=== PATIENT | female | born 1990 | race American Indian/Alaskan Native ===

== ENCOUNTER 2018-05-06 20:04 | Inpatient (IN) | payer MEDICAID ==
[2018-05-06] MEDS ORDERED: BRETHINE IVP PRN (21:59)
[2018-05-06] MEDS ORDERED: MINERAL OIL PO PRN (21:59)
[2018-05-06] MEDS ORDERED: BRETHINE SUB-Q PRN (21:59)
[2018-05-06] MEDS ORDERED: CERVIDIL VG ONE (21:59)
[2018-05-06] MEDS ORDERED: NARCAN 0.4 MG/1 ML IV PRN (21:59)
[2018-05-06] MEDS ORDERED: ZOFRAN IV PRN (21:59)
[2018-05-06] MEDS ORDERED: XYLOCAINE 2% INFILTRATI ONE (21:59)
[2018-05-06] MEDS ORDERED: LACTATED RINGERS 1,000 ML IV SCH (22:00)
[2018-05-06] MEDS ORDERED: PITOCin/NS 20 UNIT/1000ML DRIP 20 UNITS/1,000 ML BAG IV SCH (22:00)
[2018-05-06] MEDS ORDERED: AMBIEN PO PRN (23:27)
[2018-05-06 23:38] LABS: Basophils # (Auto) 0.1 K/mm3 (0.0-0.1); Basophils % (Auto) 0.5 % (0.0-1.8); Eosinophils # (Auto) 0.1 K/mm3 (0.0-0.4); Eosinophils % (Auto) 0.6 % (0.0-4.3); Hematocrit 34.3 % (30.3-42.9); Hemoglobin 11.1 gm/dl (10.1-14.3); Lymphocytes # (Auto) 3.4 K/mm3 (1.2-5.4); Lymphocytes % (Auto) 21.4 % (13.4-35.0); Mean Corpuscular HGB Conc 32 % (30-34); Mean Corpuscular Volume 86 fl (79-97); Monocytes # (Auto) 1.1 K/mm3 (0.0-0.8); Monocytes % (Auto) 6.8 % (0.0-7.3); Platelet Count 296 K/mm3 (140-440); Red Blood Count 3.97 M/mm3 (3.65-5.03); Red Cell Distribution Width 14.9 % (13.2-15.2)
[2018-05-07] MEDS: LACTATED RINGERS 1,000 ML IV SCH ×2 (08:00→22:24)
[2018-05-07] MEDS ORDERED: STADOL IV PRN (11:38)
--- NOTE | 2018-05-07 11:44 | History and Physical Report ---
History of Present Illness Date of examination: 05/07/18 Date of admission: 05/06/18 20:04 Chief complaint: Presents for a scheduled induction of labor due to Gestational HTN, and obesity. History of present illness: Early entry to care at 9 2/7 Weeks, 1st trimester complicated by Hyperemesis and Vitamin D Deficiency, 2nd and 3rd trimesters complicated by excessive maternal weight gain and HTN, started Labetolol 200mg PO BID at 34 4/7 weeks. Co-managed with [facility] throughout . Past History Past Medical History: no pertinent history Past Surgical History: other (oral Sx (3rd molar extractions)) Family/Genetic History: diabetes, hypertension, cancer Social history: no significant social history, single - Obstetrical History Expected Date of Delivery: 05/18/18 Actual Gestation: 38 Week(s) 3 Day(s) : 2 Induced : 1 Medications and Allergies Allergies Allergy/AdvReac Type Severity Reaction Status Date / Time No Known Allergies Allergy Verified 04/03/18 14:08 Active Meds: Active Medications Butorphanol Tartrate (Stadol) 2 mg IV Q2H PRN PRN Reason: Labor Pain Ephedrine Sulfate (Ephedrine Sulfate) 10 mg IV Q2M PRN PRN Reason: Hypotension Lactated Ringer's (Lactated Ringers) 1,000 mls @ 125 mls/hr IV DIRECT OSIRIS Last Admin: 05/06/18 23:04 Dose: 125 mls/hr Documented by: Oxytocin/Sodium Chloride (Pitocin/Ns 20 Unit/1000ml Drip) 20 units in 1,000 mls @ 125 mls/hr IV DIRECT OSIRIS Oxytocin/Sodium Chloride (Pitocin/Ns 30 Unit/500ml) 30 units in 500 mls @ 4 mls/hr IV TITR OSIRIS; Protocol Mineral Oil (Mineral Oil) 30 ml PO QHS PRN PRN Reason: Constipation Naloxone HCl (Narcan 0.4 Mg/1 Ml) 0.1 mg IV Q2MIN PRN PRN Reason: Res Rate </= 8 or 02 SAT < 92% Ondansetron HCl (Zofran) 4 mg IV Q8H PRN PRN Reason: Nausea And Vomiting Terbutaline Sulfate (Brethine) 0.25 mg SUB-Q ONCE PRN PRN Reason: Hyperstimulation/Hypertonicity Terbutaline Sulfate (Brethine) 0.25 mg IVP ONCE PRN PRN Reason: Hyperstimulation/Hypertonicity Zolpidem Tartrate (Ambien) 10 mg PO QHS PRN PRN Reason: Insomnia Last Admin: 05/06/18 23:52 Dose: 10 mg Documented by: Review of Systems All systems: negative - Vital Signs Vital signs: Vital Signs Temp Pulse BP 97.5 F L 112 H 143/81 05/06/18 20:44 05/06/18 20:44 05/06/18 20:44 Temp Pulse Resp BP Pulse Ox 97.7 F 102 H 16 140/90 05/07/18 08:00 05/07/18 11:35 05/07/18 08:00 05/07/18 11:35 - Physical Exam Breasts: Positive: normal Cardiovascular: Regular rate Lungs: Positive: Clear to auscultation, Normal air movement Abdomen: Positive: normal appearance, soft, normal bowel sounds Genitourinary (Female): Positive: normal external genitalia, normal perenium Vagina: Positive: normal moisture Uterus: Positive: enlarged - Obstetrical FHR: category 1 Uterine Contraction Monitor Mode: External Cervical Dilatation: 1 (VTX and Intact) Cervical Effacement Percentage: 50 station: -3 Uterine Contraction Pattern: Irregular Uterine Tone Measurement Phase: Resting Uterine Contraction Intensity: Mild Results Result Diagrams: 05/06/18 23:25 Abnormal lab results 05/06/18 Range/Units 23:25 WBC 16.0 H (4.5-11.0) K/mm3 [place] # 1.1 H (0.0-0.8) K/mm3 Seg Neutrophils % 70.7 H (40.0-70.0) % Seg Neutrophils # 11.3 H (1.8-7.7) K/mm3 All other labs normal. Assessment and Plan A: IUP @ 38 3/7 Weeks Category I Tracing Gestational HTN Maternal Obesity GBS Negative P: Admit to L&D per Routine Orders Cervidil removed Cook's Cervical Ripening Balloon Placed Start Pitocin Induction IV Pain Control
[2018-05-07] MEDS: PITOCin/NS 30 UNIT/500ML 30 UNITS/500 ML BAG IV SCH ×4 (12:00→14:22)
--- NOTE | 2018-05-07 17:06 | Progress Note ---
Assessment and Plan A: IUP @ 38 3/7 Weeks Category I Tracing Gestational HTN Maternal Obesity GBS Negative P: AROM Continue Pitocin Induction IV Pain Control Subjective - Subjective Date of service: 05/07/18 Interval history: Early entry to care at 9 2/7 Weeks, 1st trimester complicated by Hyperemesis and Vitamin D Deficiency, 2nd and 3rd trimesters complicated by excessive maternal weight gain and HTN, started Labetolol 200mg PO BID at 34 4/7 weeks. Co-managed with [facility] throughout . Patient reports: movement normal Objective - Vital Signs Vital Signs: Vital Signs - 12hr 05/07/18 05/07/18 05/07/18 05:13 06:11 07:11 Temperature Pulse Rate 97 H 94 H 92 H Respiratory Rate Blood Pressure 123/68 119/60 135/75 05/07/18 05/07/18 05/07/18 07:29 08:00 08:12 Temperature 97.7 F Pulse Rate 100 H 109 H Respiratory 16 Rate Blood Pressure 142/63 121/59 05/07/18 05/07/18 05/07/18 09:11 11:20 11:35 Temperature 97.6 F Pulse Rate 103 H 102 H Respiratory 16 Rate Blood Pressure 127/74 140/90 05/07/18 05/07/18 05/07/18 12:00 12:12 13:11 Temperature 97.8 F Pulse Rate 95 H 90 Respiratory 16 Rate Blood Pressure 143/88 133/67 05/07/18 05/07/18 05/07/18 14:15 15:11 16:11 Temperature Pulse Rate 99 H 98 H 98 H Respiratory Rate Blood Pressure 149/75 136/80 141/83 - Exam Breasts: normal Cardiovascular: Regular rate Lungs: Clear to auscultation, Normal air movement Abdomen: Present: normal appearance, soft, normal bowel sounds Uterus: Present: normal, firm, fundal height above umbilicus FHR: category 1 Uterine Contraction Monitor Mode: External Cervical Dilatation: 5 (Moderate amount of clear fluid upon AROM at 1655) Cervical Effacement Percentage: 70 station: -2 Uterine Contraction Pattern: Irregular Uterine Tone Measurement Phase: Resting Uterine Contraction Intensity: Moderate Extremities: normal - Labs Labs: Abnormal Labs 05/06/18 23:25 WBC 16.0 H [place] # 1.1 H Seg Neutrophils % 70.7 H Seg Neutrophils # 11.3 H Laboratory Results - last 24 hr 05/06/18 05/06/18 05/06/18 21:30 21:30 23:25 WBC 16.0 H RBC 3.97 Hgb 11.1 Hct 34.3 MCV 86 MCH 28 MCHC 32 RDW 14.9 Plt Count 296 Lymph % (Auto) 21.4 [place] % (Auto) 6.8 Eos % (Auto) 0.6 Baso % (Auto) 0.5 Lymph # 3.4 [place] # 1.1 H Eos # 0.1 Baso # 0.1 Seg Neutrophils % 70.7 H Seg Neutrophils # 11.3 H RPR Nonreactive Blood Type O POSITIVE Antibody Screen Negative
[2018-05-07] MEDS ORDERED: NARCAN 2 MG/2 ML IV PRN (19:00)
[2018-05-07] MEDS ORDERED: SUBLIMAZE ONE ×2 (19:40→23:45)
[2018-05-07] MEDS ORDERED: SENSORCAINE/DEXTR 0.75-8.25% INFILTRATI ONE (19:41)
[2018-05-07] MEDS ORDERED: fentaNYL-BUPIV 2 MCG/ML-0.125% 200 MCG/100 ML BAG EPIDURAL SCH (20:00)
--- NOTE | 2018-05-07 23:07 | Progress Note ---
Assessment and Plan A: IUP @ 38 3/7 Weeks Category II Tracing Gestational HTN Maternal Obesity GBS Negative P: Pitocin has been discontinued O2 Mask on Multiple Maternal Position Changes Amnioinfusion Consulted Dr. Carrasco due to Category II tracing remote from delivery Recommends delivery by primary Dr. Carrasco en route to hospital Subjective - Subjective Date of service: 05/07/18 Interval history: Early entry to care at 9 2/7 Weeks, 1st trimester complicated by Hyperemesis and Vitamin D Deficiency, 2nd and 3rd trimesters complicated by excessive maternal weight gain and HTN, started Labetolol 200mg PO BID at 34 4/7 weeks. Co-managed with [facility] throughout . Patient reports: movement normal Objective - Vital Signs Vital Signs: Vital Signs - 12hr 05/07/18 05/07/18 05/07/18 11:20 11:35 12:00 Temperature 97.6 F 97.8 F Pulse Rate 102 H Respiratory 16 16 Rate Blood Pressure 140/90 O2 Sat by Pulse Oximetry 05/07/18 05/07/18 05/07/18 12:12 13:11 14:15 Temperature Pulse Rate 95 H 90 99 H Respiratory Rate Blood Pressure 143/88 133/67 149/75 O2 Sat by Pulse Oximetry 05/07/18 05/07/18 05/07/18 15:11 16:11 17:12 Temperature Pulse Rate 98 H 98 H 109 H Respiratory Rate Blood Pressure 136/80 141/83 153/101 O2 Sat by Pulse Oximetry 05/07/18 05/07/18 05/07/18 18:13 19:13 19:26 Temperature Pulse Rate 105 H 107 H 115 H Respiratory Rate Blood Pressure 193/103 162/88 O2 Sat by Pulse 99 Oximetry 05/07/18 05/07/18 05/07/18 19:31 19:36 19:41 Temperature Pulse Rate 111 H 111 H 107 H Respiratory Rate Blood Pressure 148/88 O2 Sat by Pulse 100 100 100 Oximetry 05/07/18 05/07/18 05/07/18 19:46 19:51 19:56 Temperature Pulse Rate 116 H 107 H 113 H Respiratory Rate Blood Pressure O2 Sat by Pulse 92 100 100 Oximetry 05/07/18 05/07/18 05/07/18 19:58 19:59 20:00 Temperature Pulse Rate 112 H 114 H 110 H Respiratory Rate Blood Pressure 193/99 187/87 180/93 O2 Sat by Pulse Oximetry 05/07/18 05/07/18 05/07/18 20:01 20:02 20:06 Temperature Pulse Rate 112 H 106 H 105 H Respiratory Rate Blood Pressure 187/99 169/82 O2 Sat by Pulse 99 99 Oximetry 05/07/18 05/07/18 05/07/18 20:11 20:13 20:16 Temperature Pulse Rate 100 H 98 H 99 H Respiratory Rate Blood Pressure 161/86 O2 Sat by Pulse 100 100 Oximetry 05/07/18 05/07/18 05/07/18 20:21 20:26 20:31 Temperature Pulse Rate 104 H 113 H 105 H Respiratory Rate Blood Pressure 168/85 O2 Sat by Pulse 100 100 99 Oximetry 05/07/18 05/07/18 05/07/18 20:36 20:41 20:44 Temperature Pulse Rate 110 H 109 H 106 H Respiratory Rate Blood Pressure 157/82 O2 Sat by Pulse 100 100 Oximetry 05/07/18 05/07/18 05/07/18 20:46 20:51 20:56 Temperature Pulse Rate 111 H 104 H 102 H Respiratory Rate Blood Pressure O2 Sat by Pulse 100 100 100 Oximetry 05/07/18 05/07/18 05/07/18 20:59 21:01 21:06 Temperature Pulse Rate 100 H 105 H 102 H Respiratory Rate Blood Pressure 140/98 O2 Sat by Pulse 100 100 Oximetry 05/07/18 05/07/18 05/07/18 21:11 21:13 21:16 Temperature Pulse Rate 118 H 112 H 111 H Respiratory Rate Blood Pressure 157/91 O2 Sat by Pulse 100 100 Oximetry 05/07/18 05/07/18 05/07/18 21:21 21:26 21:28 Temperature Pulse Rate 114 H 113 H 105 H Respiratory Rate Blood Pressure 168/83 O2 Sat by Pulse 100 100 Oximetry 05/07/18 05/07/18 05/07/18 21:31 21:36 21:41 Temperature Pulse Rate 107 H 107 H 109 H Respiratory Rate Blood Pressure O2 Sat by Pulse 100 100 100 Oximetry 05/07/18 05/07/18 05/07/18 21:43 21:46 21:51 Temperature Pulse Rate 106 H 111 H 127 H Respiratory Rate Blood Pressure 135/79 O2 Sat by Pulse 100 100 Oximetry 05/07/18 05/07/1805/07/19 21:56 21:58 22:01 Temperature Pulse Rate 115 H 109 H 113 H Respiratory Rate Blood Pressure 130/75 O2 Sat by Pulse 100 100 Oximetry 05/07/18 05/07/18 05/07/18 22:06 22:11 22:14 Temperature Pulse Rate 121 H 121 H 107 H Respiratory Rate Blood Pressure 146/90 O2 Sat by Pulse 100 100 Oximetry 05/07/18 05/07/18 05/07/18 22:16 22:21 22:26 Temperature Pulse Rate 105 H 114 H 120 H Respiratory Rate Blood Pressure O2 Sat by Pulse 100 100 100 Oximetry 05/07/18 05/07/18 05/07/18 22:28 22:31 22:36 Temperature Pulse Rate 118 H 106 H 118 H Respiratory Rate Blood Pressure 145/77 O2 Sat by Pulse 100 100 Oximetry 05/07/18 05/07/18 05/07/18 22:41 22:43 22:46 Temperature Pulse Rate 105 H 105 H 102 H Respiratory Rate Blood Pressure 138/78 O2 Sat by Pulse 97 100 Oximetry 05/07/18 05/07/18 05/07/18 22:51 22:56 22:59 Temperature Pulse Rate 106 H 109 H 114 H Respiratory Rate Blood Pressure 126/72 O2 Sat by Pulse 100 100 Oximetry - Exam Breasts: normal Cardiovascular: Regular rate Lungs: Clear to auscultation, Normal air movement Abdomen: Present: normal appearance, soft, normal bowel sounds FHR: category 2 FHR comments: FHR: 144, moderate varability, -accels, +late decels, Uterine Contraction Monitor Mode: Internal Cervical Dilatation: 5.5 Cervical Effacement Percentage: 80 station: -2 Uterine Contraction Pattern: Regular Uterine Tone Measurement Phase: Resting Uterine Contraction Intensity: Mild Extremities: normal - Labs Labs: Abnormal Labs 05/06/18 23:25 WBC 16.0 H [place] # 1.1 H Seg Neutrophils % 70.7 H Seg Neutrophils # 11.3 H Laboratory Results - last 24 hr 05/06/18 05/06/18 21:30 23:25 WBC 16.0 H RBC 3.97 Hgb 11.1 Hct 34.3 MCV 86 MCH 28 MCHC 32 RDW 14.9 Plt Count 296 Lymph % (Auto) 21.4 [place] % (Auto) 6.8 Eos % (Auto) 0.6 Baso % (Auto) 0.5 Lymph # 3.4 [place] # 1.1 H Eos # 0.1 Baso # 0.1 Seg Neutrophils % 70.7 H Seg Neutrophils # 11.3 H RPR Nonreactive
[2018-05-07] MEDS ORDERED: PEPCID IV ONE (23:08)
[2018-05-07] MEDS ORDERED: REGLAN IV ONE (23:08)
[2018-05-07] MEDS ORDERED: BICITRA PO ONE (23:08)
--- NOTE | 2018-05-07 23:41 | Progress Note ---
Assessment and Plan - Patient Problems (1) 38 weeks gestation of Current Visit: Yes Status: Acute (2) Active labor Current Visit: Yes Status: Acute (3) Non-reassuring cardiotocographic tracing Current Visit: Yes Status: Acute Plan to address problem: I discussed the above findings with the patient. i told her that she needs to be delivered via C/section. Risks, benefits, and alternatives of the procedure were discussed in detail with the patient which included but not limited to the risk of infection, hemorrhage requiring blood transfusion, injury to the bowel or bladder and blood vessels. The patient expressed understanding, her questions were answered, and she gave informed consent. Anesthesia has been notified. Keep NPO. Continue monitoring. (4) Failure to progress in labor Current Visit: Yes Status: Acute (5) Chronic hypertension affecting Current Visit: Yes Status: Acute Plan to address problem: Will do toxemia labs. (6) Morbid obesity Current Visit: Yes Status: Acute Subjective - Subjective Date of service: 05/07/18 Principal diagnosis: SIUP at 38 weeks and 3 days in active labor with failure to dilate. Interval history: Patient is a 28 year old , LMP, EDC 05/18/18 at 38 weeks and 3 days gestation who was admitted for labor induction due to chronic HTN. She received cervidil on 05/05/18, followed by pitocin augmentation on 05/06/18. This AM, Cook's Ballon was inserted. She dilated to 5 cm/80% and has not progressed for over 6 hours despite adequate contractions. She then developed variables decelerations. I was called to evaluate the patient by marketing trainee Heidi for the above reasons. I found the patient lying comfortably in bed. She has epidural for pain control. tracing is CAT2. Patient reports: movement normal Objective - Vital Signs Vital Signs: Vital Signs - 12hr 05/07/18 05/07/18 05/07/18 12:00 12:12 13:11 Temperature 97.8 F Pulse Rate 95 H 90 Respiratory 16 Rate Blood Pressure 143/88 133/67 O2 Sat by Pulse Oximetry 05/07/18 05/07/18 05/07/18 14:15 15:11 16:11 Temperature Pulse Rate 99 H 98 H 98 H Respiratory Rate Blood Pressure 149/75 136/80 141/83 O2 Sat by Pulse Oximetry 05/07/18 05/07/18 05/07/18 17:12 18:13 19:13 Temperature Pulse Rate 109 H 105 H 107 H Respiratory Rate Blood Pressure 153/101 193/103 162/88 O2 Sat by Pulse Oximetry 05/07/18 05/07/18 05/07/18 19:26 19:31 19:36 Temperature Pulse Rate 115 H 111 H 111 H Respiratory Rate Blood Pressure 148/88 O2 Sat by Pulse 99 100 100 Oximetry 05/07/18 05/07/18 05/07/18 19:41 19:46 19:51 Temperature Pulse Rate 107 H 116 H 107 H Respiratory Rate Blood Pressure O2 Sat by Pulse 100 92 100 Oximetry 05/07/18 05/07/18 05/07/18 19:56 19:58 19:59 Temperature Pulse Rate 113 H 112 H 114 H Respiratory Rate Blood Pressure 193/99 187/87 O2 Sat by Pulse 100 Oximetry 05/07/18 05/07/18 05/07/18 20:00 20:01 20:02 Temperature Pulse Rate 110 H 112 H 106 H Respiratory Rate Blood Pressure 180/93 187/99 O2 Sat by Pulse 99 Oximetry 05/07/18 05/07/18 05/07/18 20:06 20:11 20:13 Temperature Pulse Rate 105 H 100 H 98 H Respiratory Rate Blood Pressure 169/82 161/86 O2 Sat by Pulse 99 100 Oximetry 05/07/18 05/07/18 05/07/18 20:16 20:21 20:26 Temperature Pulse Rate 99 H 104 H 113 H Respiratory Rate Blood Pressure 168/85 O2 Sat by Pulse 100 100 100 Oximetry 05/07/18 05/07/18 05/07/18 20:31 20:36 20:41 Temperature Pulse Rate 105 H 110 H 109 H Respiratory Rate Blood Pressure O2 Sat by Pulse 99 100 100 Oximetry 05/07/18 05/07/18 05/07/18 20:44 20:46 20:51 Temperature Pulse Rate 106 H 111 H 104 H Respiratory Rate Blood Pressure 157/82 O2 Sat by Pulse 100 100 Oximetry 05/07/18 05/07/18 05/07/18 20:56 20:59 21:01 Temperature Pulse Rate 102 H 100 H 105 H Respiratory Rate Blood Pressure 140/98 O2 Sat by Pulse 100 100 Oximetry 05/07/18 05/07/18 05/07/18 21:06 21:11 21:13 Temperature Pulse Rate 102 H 118 H 112 H Respiratory Rate Blood Pressure 157/91 O2 Sat by Pulse 100 100 Oximetry 05/07/18 05/07/18 05/07/18 21:16 21:21 21:26 Temperature Pulse Rate 111 H 114 H 113 H Respiratory Rate Blood Pressure O2 Sat by Pulse 100 100 100 Oximetry 05/07/18 05/07/18 05/07/18 21:28 21:31 21:36 Temperature Pulse Rate 105 H 107 H 107 H Respiratory Rate Blood Pressure 168/83 O2 Sat by Pulse 100 100 Oximetry 05/07/18 05/07/18 05/07/18 21:41 21:43 21:46 Temperature Pulse Rate 109 H 106 H 111 H Respiratory Rate Blood Pressure 135/79 O2 Sat by Pulse 100 100 Oximetry 05/07/18 05/07/18 05/07/18 21:51 21:56 21:58 Temperature Pulse Rate 127 H 115 H 109 H Respiratory Rate Blood Pressure 130/75 O2 Sat by Pulse 100 100 Oximetry 05/07/18 05/07/18 05/07/18 22:01 22:06 22:11 Temperature Pulse Rate 113 H 121 H 121 H Respiratory Rate Blood Pressure O2 Sat by Pulse 100 100 100 Oximetry 05/07/18 05/07/18 05/07/18 22:14 22:16 22:21 Temperature Pulse Rate 107 H 105 H 114 H Respiratory Rate Blood Pressure 146/90 O2 Sat by Pulse 100 100 Oximetry 05/07/18 05/07/18 05/07/18 22:26 22:28 22:31 Temperature Pulse Rate 120 H 118 H 106 H Respiratory Rate Blood Pressure 145/77 O2 Sat by Pulse 100 100 Oximetry 05/07/18 05/07/18 05/07/18 22:36 22:41 22:43 Temperature Pulse Rate 118 H 105 H 105 H Respiratory Rate Blood Pressure 138/78 O2 Sat by Pulse 100 97 Oximetry 05/07/18 05/07/18 05/07/18 22:46 22:51 22:56 Temperature Pulse Rate 102 H 106 H 109 H Respiratory Rate Blood Pressure O2 Sat by Pulse 100 100 100 Oximetry 05/07/18 05/07/18 05/07/18 22:59 23:14 23:28 Temperature Pulse Rate 114 H 114 H 123 H Respiratory Rate Blood Pressure 126/72 171/90 169/85 O2 Sat by Pulse Oximetry - Exam Cardiovascular: Normal S1, Normal S2 Lungs: Clear to auscultation Vulva: both: normal FHR: category 2 Uterine Contraction Monitor Mode: External Cervical Dilatation: 5 Cervical Effacement Percentage: 80 station: -2 Uterine Contraction Pattern: Regular Deep Tendon Reflex Grade: Normal +2 - Labs Labs: Abnormal Labs 05/06/18 23:25 WBC 16.0 H [place] # 1.1 H Seg Neutrophils % 70.7 H Seg Neutrophils # 11.3 H Laboratory Results - last 24 hr 05/06/18 21:30 RPR Nonreactive - Results US- obstetric: report reviewed
[2018-05-07] MEDS ORDERED: XYLOCAINE MPF 2% ONE (23:44)
[2018-05-07] MEDS ORDERED: ANCEF/STERILE WATER 2 GM/20 ML 2 GM/20 ML SYRINGE IV NR (23:45)
[2018-05-07] MEDS ORDERED: LACTATED RINGERS 1,000 ML IV SCH (23:45)
[2018-05-07] MEDS ORDERED: PITOCin/NS 20 UNIT/1000ML DRIP 20 UNITS/1,000 ML BAG IV SCH (23:45)
[2018-05-07] MEDS ORDERED: NACL 0.9% IR ONE (23:58)
[2018-05-07] MEDS ORDERED: WATER FOR IRRIG STERILE IR ONE (23:58)
[2018-05-08] MEDS ORDERED: ZOFRAN ONE (00:14)
[2018-05-08] MEDS ORDERED: ASTRAMORPH PF 10MG/10ML ONE (00:15)
[2018-05-08] MEDS ORDERED: SUBLIMAZE ONE (00:22)
[2018-05-08] MEDS ORDERED: VERSED ONE (00:29)
[2018-05-08] MEDS ORDERED: MILK OF MAGNESIA PO PRN (01:02)
[2018-05-08] MEDS ORDERED: TYLENOL PO PRN (01:02)
[2018-05-08] MEDS ORDERED: MYLICON PO PRN (01:02)
[2018-05-08] MEDS ORDERED: TORADOL IV PRN (01:02)
[2018-05-08] MEDS ORDERED: ANUCORT-HC PR PRN (01:02)
[2018-05-08] MEDS ORDERED: MORPHINE IV PRN (01:02)
[2018-05-08] MEDS ORDERED: PHENERGAN PR PRN (01:02)
[2018-05-08] MEDS ORDERED: NARCAN 0.4 MG/1 ML IV PRN (01:02)
[2018-05-08] MEDS ORDERED: SENOKOT PO PRN (01:02)
[2018-05-08] MEDS ORDERED: ZOFRAN IV PRN (01:02)
[2018-05-08] MEDS ORDERED: TUCKS PAD TP PRN (01:02)
[2018-05-08] MEDS ORDERED: LANSINOH TP PRN (01:02)
--- NOTE | 2018-05-08 01:21 | Operative Report ---
Operative Report Operative Report: Preoperative diagnosis 1. SIUP at 38 weeks and 4 days gestation in active labor. 2. Failure to dilate and descend. 3. Category 2 tracing. 4. Chronic HTN. Postoperative diagnosis: Same. Procedure: Primary low-transverse section. Surgeon: Dr. Carrasco Network Operations Specialist: none Anesthesia: epidural. IVF: RL 1800 cc EBL: 500 cc Urine: 100 cc clear Complications: none. Intraoperative findings: 1. A male found in an LEEANN position, delivered at 12:25 AM, Apgars 8 at one minute and 9 at 5 minutes, weight 6 lbs. 2 oz. 2. Normal fallopian tubes and ovaries bilaterally. Procedure details: Risks, benefits, and alternatives of the procedure were discussed in detail with the patient which included but not limited to the risk of infection, hemorrhage requiring blood transfusion, injury to the bowel or bladder and blood vessels. The patient expressed understanding, her questions were answered, and she gave informed consent. The patient was taken to the operating room with an IV fluid infusing Ringers lactate. In the operating room, she was loaded with epidural anesthesia. She wa s then placed in a dorsal supine position with a leftward tilt. Lee catheter in Venodyne boots were placed. The abdomen was washed and she was prepared and draped in usual sterile fashion. After confirming adequate anesthesia, the Pfannenstiel skin incision was made in the lower abdomen about 2 cm above the pubic symphysis using the scalpel. This incision was carried down to the underlying fascia using the Bovie. The fascia was opened bilaterally in a curvilinear fashion using the Bovie. 2 straight Kocker clamps were used to grasp the upper edge of the fascia from which the underlying rectus abdominis muscles was dissected off using the Bovie. A similar procedure was done with the lower edge of the fascia to dissect the underlying rectus abdominis muscle. The muscle was bluntly from the midline by pulling. The parietal peritoneum was grasped with 2 hemostat clamps and entered sharply using Metzenbaum scissors. A quick survey of the anatomy revealed a gravid uterus, normal fallopian tubes and ovaries bilaterally. A bladder flap was created. Donta'O retractor was placed in the incision for proper visualization. A low transverse incision was made in the lower uterine segment using the scalpel and extended bilaterally in a curvilinear fashion using bandage scissors. There was scant amount of clear amniotic fluids. The infant was found in an LEEANN position, the head was delivered atraumatically followed by the delivery of the shoulders and the rest of the body at 12:25 AM. The cord was clamped 2 and cut and the was handed off to the waiting tumbling barrel painter. The infant was a male, Apgars were 8 at 1 minute and 9 at 5 minutes, weight was 6 pounds and 2 ounces. Cord blood was collected. The placenta was delivered manually and it was complete with a three-vessel cord. The uterine cavity was cleaned of clots and debris using dry lap sponges. The uterine incision was repaired in a running locked fashion using 0 Vicryl sutures. A second layer of imbrication was placed. The gutters were cleaned of clots and debris using dry lap sponges. After confirming adequate hemostasis, the instruments were removed from the abdominal cavity. The rectus muscle was reapproximated in an interrupted fashion using 0 Vicryl sutures. The fascia was closed in a running fashion using 0 Vicryl sutures. The skin was closed with saida. Sterile dressing was placed. The counts of laps, needles, sponges, and instruments were correct 2. The patient tolerated the procedure well, she was taken to the recovery room in a stable condition.
[2018-05-08] MEDS ORDERED: SODIUM CHLORIDE FLUSH SYRINGE 10 ML IV PRN (02:00)
[2018-05-08] MEDS ORDERED: PITOCin/NS 20 UNIT/1000ML DRIP 20 UNITS/1,000 ML BAG IV SCH (02:00)
[2018-05-08 02:37] LABS: Hematocrit 34.6 % (30.3-42.9); Hemoglobin 11.4 gm/dl (10.1-14.3); Mean Corpuscular HGB Conc 33 % (30-34); Mean Corpuscular Volume 86 fl (79-97); Platelet Count 281 K/mm3 (140-440); Red Blood Count 4.04 M/mm3 (3.65-5.03); Red Cell Distribution Width 14.7 % (13.2-15.2)
[2018-05-08 02:55] LABS: Alanine Aminotransferase 17 units/L (7-56); Albumin 3.1 g/dL (3.9-5); BUN/Creatinine Ratio 15; Blood Urea Nitrogen 6 mg/dL (7-17); Calcium 8.8 mg/dL (8.4-10.2); Hemolysis Index 3
[2018-05-08 03:06] LABS: Uric Acid 3.9 mg/dL (3.5-7.6)
[2018-05-08] MEDS: NORMODYNE PO SCH ×3 (03:17→21:15)
[2018-05-08] MEDS: TORADOL IV PRN ×2 (05:33→17:26)
[2018-05-08] MEDS: FEOSOL PO SCH (09:28)
[2018-05-08] MEDS: PRENATAL VITAMIN PO SCH (09:29)
[2018-05-08 15:11] LABS: Hematocrit 31.8 % (30.3-42.9); Hemoglobin 10.2 gm/dl (10.1-14.3)
[2018-05-09] MEDS: PERCOCET 5/325 PO PRN ×3 (08:03→18:08)
[2018-05-09] MEDS: IBUPROFEN PO PRN ×2 (08:03→18:08)
[2018-05-09] MEDS: PRENATAL VITAMIN PO SCH (11:12)
[2018-05-09] MEDS: FEOSOL PO SCH (11:12)
[2018-05-09] MEDS: NORMODYNE PO SCH ×2 (11:13→22:46)
--- NOTE | 2018-05-09 15:08 | Progress Note ---
Assessment and Plan O: BP trending down, dsg off, saida intact. Last WBC 19.5, A; POD # 1 -stable Elevated WBC, afebrile P; Repeat CBC in am Plan discharge for tomorrow Subjective - Subjective Date of service: 05/09/18 Principal diagnosis: SIUP at 38 weeks and 3 days in active labor with failure to dilate. Patient reports: appetite normal [place]: doing well Objective - Vital Signs Latest vital signs: Vital Signs Temp Pulse Resp BP BP 05/09/18 11:13 124/62 05/09/18 08:01 98.6 F 18 124/76 05/09/18 00:00 98.7 F 74 18 104/78 05/08/18 20:00 98.7 F 77 18 122/73 05/08/18 17:26 20 05/08/18 16:19 97.6 F 101 H 18 110/62 Intake and Output 05/09/18 05/09/18 05/09/18 06:59 14:59 22:59 Intake Total 360 Balance 360 Intake: Oral 360 Other: Total, Intake Amount 360 # Voids Void 1 - Exam Breasts: Present: deferred Cardiovascular: Present: Regular rate Lungs: Present: Clear to auscultation Abdomen: Present: soft Uterus: Present: fundal height at umbilicus Extremities: Present: normal Deep Tendon Reflex Grade: Normal +2
[2018-05-10 05:07] LABS: Basophils % (Auto) 0.3 % (0.0-1.8); Eosinophils # (Auto) 0.2 K/mm3 (0.0-0.4); Eosinophils % (Auto) 1.3 % (0.0-4.3); Hematocrit 27.9 % (30.3-42.9); Lymphocytes # (Auto) 3.6 K/mm3 (1.2-5.4); Lymphocytes % (Auto) 23.8 % (13.4-35.0); Mean Corpuscular HGB Conc 32 % (30-34); Mean Corpuscular Volume 86 fl (79-97); Monocytes # (Auto) 1.3 K/mm3 (0.0-0.8); Monocytes % (Auto) 8.2 % (0.0-7.3); Platelet Count 266 K/mm3 (140-440); Red Blood Count 3.23 M/mm3 (3.65-5.03); Red Cell Distribution Width 15.1 % (13.2-15.2)
[2018-05-10] MEDS: IBUPROFEN PO PRN ×2 (06:17→16:21)
--- NOTE | 2018-05-10 09:41 | Progress Note ---
Assessment and Plan A: /postop day 2 S/P primary low transverse section. Anemia related to and acute blood loss. Obesity. P: Continue iron supplementation. Encouraged ambulation. Anticipate discharge tomorrow. Subjective - Subjective Date of service: 05/10/18 Principal diagnosis: /postop day 2 S/P primary low transverse section Interval history: /postop day 2 S/P primary low transverse section. Patient is doing well. She reports small amount of lochia. Patient is voiding without difficulty. Ambulating well. Tolerating a regular diet without nausea or vomiting. Passing gas. Patient denies headache, chest pain, cough, shortness of breath, dizziness, abdominal pain, leg pain, or heavy vaginal bleeding. Patient reports: appetite normal, voiding normally, pain well controlled, flatus, ambulating normally, no dizzy ambulation, no nauseated : doing well Objective - Vital Signs Latest vital signs: Vital Signs Temp Pulse Resp BP BP Pulse Ox 05/10/18 07:43 98.3 F 79 20 107/53 97 05/10/18 00:00 98.2 F 98 H 18 126/67 05/09/18 22:46 101 H 140/87 05/09/18 15:45 97.3 F L 94 H 18 132/59 05/09/18 11:13 124/62 Intake and Output 05/09/18 05/10/18 05/10/18 23:59 07:59 15:59 Intake Total 620 Balance 620 Intake: Oral 620 Other: Total, Intake Amount 240 # Voids Void 1 1 - Exam Cardiovascular: Present: Regular rate, Normal S1, Normal S2 Lungs: Present: Clear to auscultation Abdomen: Present: normal appearance, soft, normal bowel sounds. Absent: distention, tenderness, guarding, rigidity Uterus: Present: normal, firm, fundal height below umbilicus. Absent: bogginess, tenderness Extremities: Present: normal, edema (mild edema of LE bilaterally). Absent: tenderness Incision: Present: normal, dry, intact - Labs Labs: Abnormal lab results 05/10/18 Range/Units 04:33 WBC 15.3 H (4.5-11.0) K/mm3 RBC 3.23 L (3.65-5.03) M/mm3 Hgb 9.0 L (10.1-14.3) gm/dl Hct 27.9 L (30.3-42.9) % [facility] % (Auto) 8.2 H (0.0-7.3) % [facility] # 1.3 H (0.0-0.8) K/mm3 Seg Neutrophils # 10.2 H (1.8-7.7) K/mm3
[2018-05-10] MEDS: NORMODYNE PO SCH ×2 (10:32→21:18)
[2018-05-10] MEDS: PRENATAL VITAMIN PO SCH (10:32)
[2018-05-10] MEDS: FEOSOL PO SCH (10:32)
[2018-05-10] MEDS: PERCOCET 5/325 PO PRN ×2 (10:38→16:21)
[2018-05-11] MEDS: IBUPROFEN PO PRN (03:56)
[2018-05-11 08:09] VITALS: BP 128/71
--- NOTE | 2018-05-11 10:19 | Progress Note ---
Assessment and Plan A: /postop day 3 S/P primary low transverse section. Anemia due to and acute blood loss. Chronic hypertension. P: Discharge patient home this afternoon. Patient to continue taking her vitamins and iron supplements at home. She is to continue her Labetalol BID at home. Care of incision and activity restrictions discussed with patient. /postop discharge instructions and warning signs discussed with patient in detail. Advised patient to avoid intercourse, driving, stair climbing, lifting and heavy housework, tub baths (patient may take showers). Advised patient to call [facility] tomorrow and schedule an appointment to come to office in 1 week for incision check and blood pressure check. Advised patient to have regular follow up with her PCP re: chronic condition of heart murmur since childhood. Warning signs discussed with patient. Patient voiced understanding of all instructions. Subjective - Subjective Date of service: 05/11/18 Principal diagnosis: /postop day 3 S/P primary low transverse section Interval history: /postop day 3 S/P primary low transverse section. Patient is doing well; she desires discharge today. She reports small amount of lochia. She is and bottlefeeding. Patient is voiding without difficulty. Ambulating well. Tolerating a regular diet without nausea or vomiting. Passing gas. Patient denies headache, chest pain, cough, shortness of breath, dizziness, abdominal pain, leg pain, or heavy vaginal bleeding. Patient reports: appetite normal, voiding normally, pain well controlled, flatus, bowel movement, ambulating normally, no dizzy ambulation, no nauseated : doing well Objective - Vital Signs Latest vital signs: Vital Signs Temp Pulse Resp BP BP Pulse Ox 05/11/18 07:20 98.4 F 87 20 128/71 95 05/11/18 04:10 98.2 F 91 H 20 120/63 05/11/18 00:00 98.2 F 96 H 20 119/55 05/10/18 21:18 87 136/82 05/10/18 20:15 98.0 F 87 20 136/82 05/10/18 18:23 98.5 F 90 20 129/74 96 Intake and Output 05/10/18 05/11/18 05/11/18 23:59 07:59 15:59 Intake Total 480 240 Balance 480 240 Intake: Oral 480 240 Other: Total, Intake Amount 240 240 # Voids Void 1 1 # Bowel Movements 1 - Exam Cardiovascular: Present: Regular rate, Normal S1, Normal S2, Other (murmur heard (patient states she has had murmur since childhood and has had it evaluated and was told it was benign murmur). ) Lungs: Present: Clear to auscultation Abdomen: Present: normal appearance, soft, normal bowel sounds. Absent: distention, tenderness, guarding, rigidity Uterus: Present: normal, firm, fundal height below umbilicus. Absent: bogginess, tenderness Extremities: Present: normal, edema (mild pedal edema bilaterally). Absent: tenderness Incision: Present: normal, dry, intact
--- NOTE | 2018-05-11 10:25 | Discharge Summary ---
Providers - Providers Date of Admission: 05/06/18 20:04 Date of discharge: 05/11/18 Attending physician: LIA NGUYỄN MD None Primary care physician: LIA NGUYỄN MD Hospitalization Reason for admission: active labor Delivery: Procedure: primary low transverse Incision: normal, dry, intact Other procedures: none complications: none Discharge diagnosis: IUP at term delivered baby: male Pertinent studies: Labs Hospital course: Normal hospital course Condition at discharge: Good Disposition: DC-01 TO HOME OR SELFCARE - Discharge Diagnoses (1) Term delivered Status: Acute (2) Anemia due to acute blood loss Status: Acute Plan - Discharge Medications Prescriptions: Ibuprofen [Motrin] 800 mg PO Q8HR PRN #30 tablet PRN Reason: Pain, Moderate (4-6) oxyCODONE /ACETAMINOPHEN [Percocet 5/325] 1 tab PO Q4HR #14 tab - Provider Discharge Summary Activity: routine, no sex for 6 weeks, no heavy lifting 4 weeks, no strenuous exercise Diet: routine Instructions: routine Additional instructions: Continue your vitamins and iron supplements at home. Continue taking your Labetalol twice per day as you did during late . Call your doctor immediately for: * Fever > 100.5 * Heavy vaginal bleeding ( >1 pad per hour) * Severe persistent headache * Shortness of breath * Reddened, hot, painful area to leg or breast * Drainage or odor from incision. * Keep incision clean and dry at all times and follow doctor's instructions regarding bathing/showering - Follow up plan Follow up: LIA NGUYỄN MD [Primary Care Provider] - 7 Days
[2018-05-11] MEDS: NORMODYNE PO SCH (11:41)
[2018-05-11] MEDS: PRENATAL VITAMIN PO SCH (11:41)
[2018-05-11] MEDS: FEOSOL PO SCH (11:41)
== END 2018-05-11 12:10 | disposition home or self-care (01) | DRG 765 ==
LOC: LD 20:04 → OB 05-08 02:28
PROVIDERS: ADMIT Obstetrics & Gynecology; ATTEND Obstetrics & Gynecology
PROC: 10907ZC Drainage of Amniotic Fluid, Therapeutic from Products of Conception, Via Natural or Artificial Opening (ICD-10-PCS; 2018-05-07)
PROC: 3E033VJ Introduction of Other Hormone into Peripheral Vein, Percutaneous Approach (ICD-10-PCS; 2018-05-07)
PROC: 0U7C7ZZ Dilation of Cervix, Via Natural or Artificial Opening (ICD-10-PCS; 2018-05-07)
PROC: 10D00Z1 Extraction of Products of Conception, Low, Open Approach (ICD-10-PCS; principal; 2018-05-08)
DX: O13.4 Gestational [pregnancy-induced] hypertension without significant proteinuria, complicating childbirth (principal); D62 Acute posthemorrhagic anemia; O62.0 Primary inadequate contractions; O62.1 Secondary uterine inertia; O76 Abnormality in fetal heart rate and rhythm complicating labor and delivery; Z3A.38 38 weeks gestation of pregnancy; Z37.0 Single live birth; E66.01 Morbid (severe) obesity due to excess calories; O99.214 Obesity complicating childbirth; O99.02 Anemia complicating childbirth
CPT/HCPCS: 36415; 59200; 80053; 82565; 83615; 84550; 85014; 85018; 85025; 85027; 85461; 86592; 86850; 86900; 86901; 96360; 96361; 96374; G0378; J0595; J0690; J1885; J2250; J2274; J2405; J2590; J2765; J3010; J7120